=== PATIENT | female | born 1950 | race Caucasian/White ===

== ENCOUNTER 2024-08-08 17:46 | Observation (INO) ==
[2024-08-08 18:44] LABS: Basophils # (Auto) 0.04 K/mcL (0.00-0.30); Basophils % (Auto) 0.6 % (0.0-2.0); Eosinophils # (Auto) 0 K/mcL (0.00-0.70); Eosinophils % (Auto) 0 % (0.0-7.0); Hematocrit 38.3 % (34.1-44.9); Hemoglobin 12.6 g/dL (11.2-15.7); Lymphocytes # (Auto) 1.87 K/mcL (1.50-4.80); Lymphocytes % (Auto) 26.6 % (15.5-49.0); Mean Cell Volume 89.9 fL (80.0-100.0); Mean Corpuscular HGB Conc 32.9 g/dL (31.0-36.0); Mean Platelet Volume 9.3 fL (8.8-12.5); Monocytes # (Auto) 0.61 K/mcL (0.10-0.90); Monocytes % (Auto) 8.7 % (1.0-12.0); Platelet Count 274 K/mcL (140-440); RBC 4.26 M/mcL (3.59-5.38)
[2024-08-08 18:53] LABS: Partial Thromboplastin Time 23.8 sec (20.0-37.0)
[2024-08-08 18:56] LABS: Prothrombin Time 13.7 sec (11.9-14.5)
[2024-08-08 19:07] LABS: ALT/SGPT 22 U/L (<40); AST/SGOT 24 U/L (<32); Albumin 4.1 gm/dL (3.2-5.2); Albumin/Globulin Ratio 2.1 (1.0-2.3); Alkaline Phosphatase 78 U/L (39-117); Bilirubin,Total 0.4 mg/dL (0.1-1.0); Blood Urea Nitrogen 11 mg/dL (8-23); Calcium 8.7 mg/dL (8.6-10.4); Carbon Dioxide 26 mmol/L (22-30); Chloride 103 mmol/L (96-108); Glomerular Filtration Rate 85; Glucose 80 mg/dL (70-105); Potassium 3.6 mmol/L (3.3-5.1); Sodium 140 mmol/L (133-145)
[2024-08-08] MEDS: ACETAMINOPHEN 1,000 MG/100 ML BAG IV ONE (20:10)
[2024-08-08 21:32] LABS: Amphetamine Screen,Urine None detected; Barbiturate Screen,Urine None detected; Benzodiazepines Screen,Urine None detected; Cannabinoid Screen,Urine None detected; Cocaine Screen,Urine None detected; Fentanyl, Urine Screen None Detected; Opiate Screen,Urine None detected; Oxycodone, Urine Screen Suspect Positive; Phencyclidine Screen,Urine None detected
[2024-08-08 21:46] LABS: Appearance,Urine CLEAR (Clear); Bilirubin,Urine Negative (Negative); Color,Urine YELLOW; Glucose,Urine (UA) Negative (Negative); Ketones,Urine Negative (Negative); Leukocyte Esterase,Urine Negative /uL (Negative); Mucus,Urine FEW /hpf; Nitrate,Urine Negative (Negative); Protein,Urine Negative (Negative); Specific Gravity,Urine 1.038 (1.000-1.035); Urine Blood Negative (Negative); Urine RBC < 1 /hpf (0-3); Urine Squamous Epithelial Cell 0 /hpf (0-4); Urine WBC 1 /hpf (0-4); Urobilinogen,Urine Negative
[2024-08-08] MEDS ORDERED: MAGNESIUM SULFATE 2 GM/50 ML BAG IV PRN (23:31)
[2024-08-08] MEDS ORDERED: IPRATROPIUM/ALBUTEROL 3 ML AMPUL.NEB NEB PRN (23:31)
[2024-08-08] MEDS ORDERED: METOCLOPRAMIDE 10 MG/2 ML VIAL IV PRN (23:31)
[2024-08-08] MEDS ORDERED: POTASSIUM CHLORIDE 40 MEQ in DEXTROSE 5% IN WATER 500 ML IV PRN (23:31)
[2024-08-08] MEDS ORDERED: POTASSIUM CHLORIDE 20 MEQ TABLET PO PRN ×2 (23:31)
[2024-08-08] MEDS ORDERED: ONDANSETRON 4 MG/2 ML VIAL IV PRN (23:31)
[2024-08-08] MEDS ORDERED: SENNOSIDES 1 TABLET PO PRN (23:31)
[2024-08-08] MEDS ORDERED: POLYETHYLENE GLYCOL 3350 17 GM PACKET PO PRN (23:31)
[2024-08-09] MEDS: 0.9 % SODIUM CHLORIDE 1,000 ML IV ONE (01:02)
[2024-08-09] MEDS: DOCUSATE SODIUM 100 MG CAPSULE PO SCH (01:02)
[2024-08-09] MEDS: ACETAMINOPHEN 325 MG TABLET PO PRN (01:10)
[2024-08-09] MEDS: ACETAMINOPHEN 325 MG TABLET PO ONE (02:09)
[2024-08-09 07:28] LABS: ALT/SGPT 19 U/L (<40); AST/SGOT 21 U/L (<32); Albumin 3.8 gm/dL (3.2-5.2); Alkaline Phosphatase 73 U/L (39-117); Bilirubin,Direct 0.2 mg/dL (<0.3); Bilirubin,Total 0.4 mg/dL (0.1-1.0); Blood Urea Nitrogen 11 mg/dL (8-23); Calcium 8.7 mg/dL (8.6-10.4); Carbon Dioxide 26 mmol/L (22-30); Chloride 107 mmol/L (96-108); Globulin 1.9 gm/dL (2.2-3.7); Glomerular Filtration Rate 90; Glucose 77 mg/dL (70-105); Lactate Dehydrogenase 224 U/L (135-225); Phosphorous 3.6 mg/dL (2.5-4.5); Potassium 3.8 mmol/L (3.3-5.1); Sodium 142 mmol/L (133-145); Triglycerides 64 mg/dL (<150); Uric Acid 3.4 mg/dL (2.5-8.0)
[2024-08-09] MEDS ORDERED: tiZANidine 4 MG TABLET PO PRN (07:34)
[2024-08-09] MEDS: ASPIRIN 81 MG TAB.CHEW PO SCH (09:04)
[2024-08-09] MEDS: PREGABALIN 150 MG CAPSULE PO SCH (09:04)
[2024-08-09] MEDS: ENOXAPARIN 40 MG/0.4 ML SYRINGE SQ SCH (09:04)
[2024-08-09] MEDS: busPIRone 15 MG TABLET PO SCH (09:04)
[2024-08-09 10:40] VITALS: TEMP 97.1
[2024-08-09 14:02] VITALS: O2SAT 99
[2024-08-09] MEDS ORDERED: ATORVASTATIN 40 MG TABLET PO SCH (21:00)
== END 2024-08-09 13:45 | disposition home or self-care (01) ==
LOC: ED 17:46 → ICU 23:29 → INTOOBSV 23:29
PROVIDERS: ADMIT Internal Medicine; ATTEND Internal Medicine